=== PATIENT | female | born 1960 | race Caucasian/White ===

== ENCOUNTER → 2019-05-11 | Day surgery (SDC) | payer BC ==
[2019-05-09 15:04] LABS: BASOPHILS % 0.8 % (0.0-1.0); EOSINOPHILS # (AUTO) 0.1 (0.0-0.4); EOSINOPHILS % 2.1 % (0.0-6.0); HEMATOCRIT 42.6 % (34.2-44.1); LYMPHOCYTES # (AUTO) 1.4 (1.0-3.2); LYMPHOCYTES % 27.7 % (18.0-39.1); MEAN CORPUSCULAR HEMOGLOBIN 31.5 pg (28-32); MEAN CORPUSCULAR HGB CONC 32.9 g/dL (31-35); MEAN CORPUSCULAR VOLUME 95.7 fL (81-99); MONOCYTES # (AUTO) 0.5 (0.2-0.8); MONOCYTES % 10.3 % (4.4-11.3); NEUTROPHILS # (AUTO) 3.1 (2.1-6.9); NEUTROPHILS % 58.9 % (38.7-80.0); PLATELET COUNT 214 x10e3/uL (140-360); RED BLOOD COUNT 4.45 x10e6/uL (3.6-5.1); RED CELL DISTRIBUTION WIDTH 11.9 % (11.7-14.4)
[2019-05-09 15:21] LABS: ALANINE AMINOTRANSFERASE 23 IU/L (0-55); ALBUMIN 4.1 g/dL (3.5-5.0); ALBUMIN/GLOBULIN RATIO 1.2 (0.8-2.0); ALKALINE PHOSPHATASE 70 IU/L (40-150); ANION GAP 12.2 mmol/L (8-16); BLOOD UREA NITROGEN 15 mg/dL (7-26); BUN/CREATININE RATIO 18 (6-25); CALCIUM 10.2 mg/dL (8.4-10.2); CARBON DIOXIDE 29 mmol/L (22-29); CHLORIDE 103 mmol/L (98-107); CREATININE, SERUM 0.84 mg/dL (0.57-1.11); EST GLOMERULAR FILTRATION RATE > 60 ML/MIN (60-); GLUCOSE 90 mg/dL (74-118); POTASSIUM 4.2 mmol/L (3.5-5.1); SODIUM 140 mmol/L (136-145)
[~2019-05-11] VITALS: Ht 162.6 cm; Wt 79.8 kg
[2019-05-11] VITALS (8 sets, daily range): BP systolic 108–150; BP diastolic 70–89
[~2019-05-11] MED LIST: CONTRAVE ER 8-1 EACH PO; FENTANYL CITRATE/PF 100MCG/2 ML INJ ONE; HEPARIN SOD (PORCINE) 1000 UNIT/ML 30ML ONE; HEPARIN SOD/SOD CHLORIDE 2,000 ML ONE; IOPAMIDOL 370 MG/ML 200 ML INFUS..BTL INJ ONE; LEVOTHYROXINE50 MCG PO; LIDOCAINE HCL 2% LOCAL 20 ML VIAL ONE; METOPROLOL SUCC25 MG PO; MIDAZOLAM HCL 2 MG/2 ML VIAL ONE; MULTI-VITAMIN1 EACH PO; NEOMYCIN/POLYMYXIN/BACITRACIN 15 GM TUBE TOP ONE; OMEGA 3 FISH O1 EACH PO; SAVAYSA60 MG PO; SODIUM CHLORIDE 0.9% 1000ML 1,000 ML ONE; TRULICITY1.5 MG/0.5 SC; VERAPAMIL HCL 2.5 MG/ML 2 ML VIAL ONE; VITAMIN D35000 UNIT PO; VYTORIN 10-201 EACH PO
--- NOTE | 2019-05-11 16:15 | NUR ---
2201 Bedside report received from Antionette EDMONDS. from laboratory [facility] PACU 19.Identiferx2. Alert oriented and appropriate, PERRLA, respirations even and unlabored to room air. Pulses x4 extremities equal and strong. Pedal pulses PT/DP X4 Cap fill brisk < 3 sec. [facility] no fix Rt Tr band approach. Skin warm and dry integrity appears D/I. IV 20g to left hand presents healthy w/o s/s of infiltration or complaint.0.9NS Infusing at KVO Abdomen soft and supple. pt offered toileting, denies need to urinate or defecate. No personal affects with patient. Family sister at bedside Pt and family verbalizes understanding of POC. Currently w/o complaint of pain or need. For dc home at 6pm after TR band off panfilo/elizabet
--- NOTE | 2019-05-11 17:15 | NUR ---
1715 RADIAL Compression removal: Initial Cuff volume 13 cc 1715 -2 cc Removed No hematoma/bleeding noted with normal neurovascular function. 1730 -5 cc Removed No hematoma/ bleeding noted with normal neurovascular function. 1745 -5cc Removed No hematoma/bleeding noted with normal neurovascular function. cc Removed No hematoma/ bleeding noted with normal neurovascular function. Air removal completed. Stasis achieved sterile 2x2,Tegaderm, Coban dressing No hematoma, bleeding noted with normal neurovascular function. Wrist splint in place. Pt instructed on POC. Ds/Rn
--- NOTE | 2019-05-28 17:08 | Operative Report ---
DATE OF PROCEDURE: 05/11/2019 SURGEON: Neal Raya MD INDICATIONS: Coronary artery disease and abnormal stress test. PROCEDURES PERFORMED: 1. Left heart catheterization, selective coronary angiography. 2. Deployment of right wrist TR band. COMPLICATIONS: None. RECOMMENDATIONS: Medical therapy. DESCRIPTION OF PROCEDURE: Access obtained in the right radial artery. A 5-[place] sheath was placed. Coronary angiography demonstrated minimal coronary artery disease, less than 10% luminal stenosis, KENRICK-3 flow in all vessels. No critical stenosis or occlusions noted. Right wrist TR band applied. The patient discharged home the same day. Neal Raya MD KSB/MODL /[id number]
== END | disposition home or self-care (01) ==
LOC: CATH LAB 11:06 → EDBD 15:00
PROVIDERS: ATTEND Internal Medicine Interventional Cardiology
DX: I25.118 Atherosclerotic heart disease of native coronary artery with other forms of angina pectoris (principal); R94.39 Abnormal result of other cardiovascular function study; I48.91 Unspecified atrial fibrillation; E78.00 Pure hypercholesterolemia, unspecified; R03.0 Elevated blood-pressure reading, without diagnosis of hypertension; Z01.812 Encounter for preprocedural laboratory examination; Z68.30 Body mass index [BMI] 30.0-30.9, adult; Z82.49 Family history of ischemic heart disease and other diseases of the circulatory system
CPT/HCPCS: 36415; 80053; 85025; 93458; C1769; C1887; J1644; J2001; J2250; J3010; J7030; Q9967; 99152